=== PATIENT | female | born 1940 | race Caucasian/White ===

== ENCOUNTER 2023-11-26 19:01 | Emergency (ER) | payer OTHER, SELFPAY ==
[2023-11-26 19:13] VITALS: BP 225/95
[2023-11-26 19:34] LABS: % Basophils 0.3 % (0-2); % Eosinophils 4.2 % (0-6); % Immature Granulocytes 0.2 % (0-0.5); % Lymphocytes 19.1 % (20.5-51.1); % Monocytes 7.5 % (1.7-9.3); % Neutrophils 68.7 % (42.2-75.2); Absolute Eosinophils 0.3 10^3/uL (0-0.7); Absolute Lymphocytes 1.2 10^3/uL (1.2-3.4); Absolute Monocytes 0.5 10^3/uL (0.1-0.6); Absolute Neutrophils 4.4 10^3/uL (1.4-6.5); Hematocrit 36.1 % (37.0-47.0); Hemoglobin 12.4 g/dL (12.0-16.0); Mean Corp Hgb Conc. 34.3 g/dL (33.0-37.0); Mean Corpuscular Hgb 30.8 pg (27.0-31.0); Mean Corpuscular Volume 89.6 fL (81.0-99.0); Mean Platelet Volume 9.4 fL (7.4-10.4); Nucleated Red Blood Cells % 0 %; Platelet Count 235 10^3/uL (130-400); Red Blood Cell Count 4.03 10^6/uL (4.20-5.40); Red Cell Dist. Width 12.3 % (11.5-14.5); White Blood Cell Count 6.4 10^3/uL (4.8-10.8)
[2023-11-26 19:49] VITALS: BMI 25.8
[2023-11-26 19:49] LABS: ALT (SGPT) 18 U/L (0-35); AST (SGOT) 21 U/L (14-36); Albumin 4.4 g/dl (3.5-5.0); Alkaline Phosphatase 76 U/L (38-126); Blood Urea Nitrogen 13 mg/dl (7-17); Calcium 9.6 mg/dl (8.4-10.2); Carbon Dioxide 28 mmol/L (22-30); Chloride 102 mmol/L (98-107); Glucose 127 mg/dl (70-99); Potassium 3.5 mmol/L (3.5-5.1); Sodium 139 mmol/L (135-145); Total Bilirubin 1.2 mg/dl (0.2-1.3); Total Protein 6.9 g/dl (6.3-8.2); eGFR > 60.00
[2023-11-26 19:52] VITALS: BP 188/69
--- NOTE | 2023-11-26 19:55 | ED.GENMED ---
History of Present Illness
General
Chief Complaint: Blood Pressure Problem
Source: patient and family
Exam Limitations: none
Time Seen by Provider: 11/26/23 19:38
Nursing documentation reviewed up to this point in time: agreed with
Travel History
Have you had any contact with someone who has COVID-19?: No
Do you have any symptoms of coronavirus? Fever > 100 degrees, chills, cough, shortness of breath, sore throat, loss of taste or smell, muscle aches, or headache?: No
History of Present Illness
History of Present Illness:
83-year-old female history of hypertension admits to noncompliance with her meds presents for evaluation of high blood pressure has not been sleeping well, admits to some anxiety 10-year anniversary of her spouse's is coming up, took her blood
pressure past couple days has been elevated she called her son who brought her to the ER states that to the triage nurse she had pain in her arm to me she states she had pain in her neck tells me it has been a long for some time perhaps as long as a
year no shortness of breath or diaphoresis no fever or chills, called her pump tester today for refill for her meds was unable to pick it up she is unsure of the name of the med,
Past History
Past History
ED Past Medical History: HTN; Negative CAD
ED Past Surgical History: Negative Cardiac
Social History
Tobacco: Non-smoker
Alcohol: None
Drug: None
Personal:
Living: alone
Employment: Employed
Family History
Family History: CAD (Son and spouse)
Review of Systems
Review of Systems
All Other Systems: Not applicable
Constitutional: Denies fever or fatigue
EENT: Reports no symptoms
Respiratory: Reports no symptoms
Cardiac: Denies chest pain or diaphoresis
ABD/GI: Reports no symptoms
: Reports no symptoms
Musculoskeletal: Reports neck pain
Skin: Reports no symptoms
Neurological: Reports no symptoms
Endocrine: Reports no symptoms
Phy Exam
Physical Exam
Physical Exam:
Physical Exam
General: no apparent distress, not acutely ill
Neck: No jaundice
Heart: No murmur regular
Lungs: no acute respiratory distress. clear bilaterally
Abdomen: Nontender
Neuro: alert and oriented. no focal neurological deficits
Skin: no rash
Psychiatric: well kept. interactive and cooperative
Extremities: no edema. no calf tenderness
Scores
Heart Score for Chest Pain Patients
STEMI patient?: No
History: Slightly or Non-Suspicious
ECG: Normal
Age: >/= 65 years
Risk Factors: 1 or 2 Risk Factors
Troponin: </= Normal Limit
Heart Score for Chest Pain Patients: 3
Heart Score Risk: 2.5% MACE over next 6 weeks
Course
Orders/Labs/Results
Orders:
Orders
11/26/23 19:17
Electrocardiogram (*1) Urgent
Reason for Study: Other
Other Reason for Exam: Respiratory Distress
Cardiac Monitoring- Treatment ONCE
EKG- Treatment ONCE
IV Insert/Care/Rem.- Treatment PRN
CR Chest - 2 Views Urgent
Comment:
Reason For Exam: respiratory distress
O2 Therapy [RESP] Urgent
Titrate/Wean O2 to maintain O2 sat greater than (%): 93
Special Instructions: TO MAINTAIN CONTINUOUS O2 SATS >/= 93%
Pulse Ox/cont/shift [RESP] Urgent
Quantity: 1
Special Instructions: continuous pulse ox
11/26/23 19:29
Complete Blood Count/With Diff Urgent
Comprehensive Metabolic Panel Urgent
Troponin I Urgent
11/26/23 19:47
Aspirin 325 mg PO NOW STA
HydrALAZINE [Apresoline] 5 mg IV NOW STA
11/26/23 19:48
Valsartan [Diovan] 80 mg PO NOW STA
Abnormal Lab Results
11/26/23
19:29
RBC 4.03 L 10^6/uL
(4.20-5.40)
Hct 36.1 L %
(37.0-47.0)
Lymphocytes % 19.1 L %
(20.5-51.1)
Creatinine 0.5 L mg/dL
(0.6-1.0)
Glucose 127 H mg/dl
(70-99)
11/26/23 19:29
11/26/23 19:29
Vital Signs
Initial and Last Documented VS:
Initial Vital Signs
Temp Pulse Resp BP Pulse Ox
98.5 F 85 20 225/95 97
11/26/23 19:13 11/26/23 19:13 11/26/23 19:13 11/26/23 19:13 11/26/23 19:13
Last Documented Vital Signs
Temp Pulse Resp BP Pulse Ox
98.5 F 74 17 188/67 96
11/26/23 19:13 11/26/23 20:15 11/26/23 20:15 11/26/23 20:56 11/26/23 20:56
MDM/Problems Addressed
Differential Diagnosis Includes:
Hypertension muscle strain, anxiety, doubt ACS,
MDM/Problems Addressed:
High blood pressure neck pain
Chronic conditions affecting care:
High blood pressure noncompliant
Acute Exacerbation and/or Progression of Chronic Illness:
High blood pressure
*Radiology
Radiology exam reviewed: preliminary read by ED provider
*Pulse Oximetry
Patient hypoxic: no
*EKG
Interpreted by ED Provider?: Yes
Interpretation: normal
Comparison EKG: no comparison EKG present
Heart Rate: 78
Rate: normal
Ischemia: no ischemia
*Bell Clerk Interpretation
Rate: normal
Interpretation: normal
Heart Rate: 78
Rhythm: sinus
*Critical Care Note
Total Time (30-74mins, 75-104mins- exclusive of procedures): Not Applicable
Update Note
Update Note:
Update patient feeling better blood pressure reasonable she has meds at the pharmacy to take workup negative
ED Attending Note
-
Portions of this chart may have been created with voice recognition software.� Occasional wrong word or��sound alike� substitutions may have occurred due to the inherent limitations of voice recognition software.
Discharge Plan
Departure
Patient Disposition: Home (Routine Discharge)
Date of Disposition: 11/26/23
Time of Disposition: 21:18
Patient with high blood pressure during this ER visit?: Yes
Condition: Good
Discharge Problem:
HBP (high blood pressure)
Instructions: High Blood Pressure (DC), Chest Pain DCA Follow Up
Prescriptions:
No Action
aspirin 81 MG tablet,delayed release (DR/EC)
81 mg PO DAILY
Diovan
1 tab PO DAILY
atorvastatin 40 mg Tablet
40 mg PO DAILY
Referrals:
Bryan Alcantar, DO [Non-Admitting Privileges] - Next open appointment
Activity Restrictions/Additional Instructions:
Take your medication as prescribed by your physicians, return to the ER for worsening symptoms follow-up with your family doctor and/or pump tester
Interventions
Interventions:
*Risk Screen - Suicide Last Done: 11/26/23 19:13
*General Assessment Last Done: 11/26/23 19:13
*Neglect/Abuse Screening Last Done: 11/26/23 19:13
ED- Fall Risk Assessment Last Done: 11/26/23 19:13
*ED COVID-19 Vaccine History Last Done: 11/26/23 19:13
ED- Cardiac Assessment Last Done: 11/26/23 19:52
ED- Neurological Assessment Last Done: 11/26/23 19:52
ED- Pulmonary Assessment Last Done: 11/26/23 19:52
Discharge Date and Time
Print Language: SOUTH AFR[place]
[2023-11-26] MEDS: DIOVAN 80 MG PO (19:58)
[2023-11-26] MEDS: ASPIRIN 325 MG PO (19:58)
[2023-11-26 19:59] LABS: Troponin I < 0.012 ng/ml
[2023-11-26 20:56] VITALS: BP 188/67
== END 2023-11-26 21:31 | disposition home or self-care (01) ==
LOC: EMR 19:01
PROVIDERS: EMERGENCY PHYSICIAN Emergency Medicine
DX: I10 Essential (primary) hypertension (principal); Z82.49 Family history of ischemic heart disease and other diseases of the circulatory system; Z91.199 Patient's noncompliance with other medical treatment and regimen due to unspecified reason
CPT/HCPCS: 99283; 96374; 71046; 80053; 84484; 85025; 93005

== ENCOUNTER → 2024-01-29 07:34 | Outpatient (REF) | payer OTHER, SELFPAY | LOC: MRI 3T 07:34 | PROVIDERS: ATTENDING PHYSICIAN Internal Medicine; REFERRING PHYSICIAN Specialist | DX: R41.3 Other amnesia (principal) | CPT/HCPCS: 70551 ==

== ENCOUNTER → 2024-01-31 13:02 | Outpatient (REF) | payer OTHER, SELFPAY | LOC: RAD 13:02 | PROVIDERS: ATTENDING PHYSICIAN Registered Nurse; FAMILY PHYSICIAN Internal Medicine | DX: I73.9 Peripheral vascular disease, unspecified (principal) | CPT/HCPCS: 93922; 93925 ==

== ENCOUNTER → 2024-02-14 09:03 | Outpatient (REF) | payer OTHER, SELFPAY | LOC: RAD 09:03 | PROVIDERS: ATTENDING PHYSICIAN Surgery Vascular Surgery; FAMILY PHYSICIAN Internal Medicine | DX: Z86.73 Personal history of transient ischemic attack (TIA), and cerebral infarction without residual deficits (principal) | CPT/HCPCS: 93880 ==

== ENCOUNTER 2024-03-03 09:27 | Day surgery (SDC) | payer OTHER, SELFPAY ==
[2024-03-03] VITALS (28 sets, daily range): BP systolic 128–198; BP diastolic 49–102; BMI 24.3; BMI 24.0
[2024-03-03 09:58] LABS: Hematocrit 33.5 % (37.0-47.0); Hemoglobin 12.1 g/dL (12.0-16.0); Mean Corp Hgb Conc. 36.1 g/dL (33.0-37.0); Mean Corpuscular Hgb 31.9 pg (27.0-31.0); Mean Corpuscular Volume 88.4 fL (81.0-99.0); Mean Platelet Volume 9.4 fL (7.4-10.4); Platelet Count 267 10^3/uL (130-400); Red Blood Cell Count 3.79 10^6/uL (4.20-5.40); Red Cell Dist. Width 12.3 % (11.5-14.5); White Blood Cell Count 5.7 10^3/uL (4.8-10.8)
[2024-03-03 10:07] LABS: INR 1.07; PT 13.7 Sec (11.4-14.6)
[2024-03-03 10:08] LABS: APTT 29.5 Sec (23.4-35.0)
[2024-03-03 10:11] LABS: Blood Urea Nitrogen 13 mg/dl (7-17); Calcium 9.5 mg/dl (8.4-10.2); Carbon Dioxide 27 mmol/L (22-30); Chloride 104 mmol/L (98-107); Glucose 112 mg/dl (70-99); Potassium 3.9 mmol/L (3.5-5.1); Sodium 141 mmol/L (135-145); eGFR > 60.00
[2024-03-03] MEDS: NSS 500 IV (10:46)
--- NOTE | 2024-03-03 11:14 | W.SUR.PREOP ---
Pre-Operative Surgical Note
-
I have examined this patient prior to the performance of the scheduled procedure.
The patient's condition is unchanged from the time of the current History and
Physical and the patient is able to undergo the scheduled procedure.
[2024-03-03] MEDS: APRESOLINE 5 MG IV ×2 (12:55→18:16)
--- NOTE | 2024-03-03 13:18 | W.SUR.POST ---
Surgical Immediate Post Op
Note
Pre Op Diagnosis: PAD
Post Op Diagnosis: PAD
Procedure Performed: RLE angiogram, right SFA WOOD MILLING MACHINE HAND/stent x 3
Primary Surgeon: Shelly
Anesthesia: local and sedation
Estimated Blood Loss: <2cc
Fluids: see anesthesia flow sheet
Drains/Shunts: none
Specimens/Cultures: none
Doppler/Duplex/Angio (Y/N): Y
Complications: none
Operative Findings: successful stent placement
[2024-03-03] MEDS: PLAVIX 300 MG PO (13:19)
[2024-03-03] MEDS: NSS 1000 IV ×2 (14:07→20:21)
--- NOTE | 2024-03-03 16:30 | PTCARENOTE ---
BP 173/68, Giana DOMÍNGUEZ informed, will place an order for now dose of hydrochlorothiazide, see mar
--- NOTE | 2024-03-03 16:41 | OR.RPT ---
Operative Report
Operative Report
Date of Operation: 03/03/2024
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
Procedure:
1.) Balloon angioplasty and stenting of right superficial femoral artery and above-knee popliteal artery (overlapping Zilver PTX stents-6 mm x 140 mm distal, 6 mm x 140 mm mid, 6 mm x 80 mm proximal)
2.) Diagnostic aortobiiliac arteriogram
3.) Diagnostic right lower extremity arterial
4.) Ultrasound-guided percutaneous access to the left common femoral artery
Surgeon: Richard Bravo III, MD
Anesthesia: Sedation with local
Fluoroscopy:
28.4 min
121 mGy
17.74 Gy.cm2
Complications: None
Estimated Blood Loss: Minimal
History and Indications for Procedure: 84-year-old female with a lesion on the plantar surface of her right foot. It was anticipated that she would need surgical intervention for this. Preoperative vascular lab studies demonstrated peripheral
arterial disease with a right superficial femoral artery occlusion. I recommended an arteriogram with possible endovascular intervention.
Procedure in Detail: Paloma Meneses was correctly identified and placed supine on the operating table. After adequate induction of anesthesia the bilateral groins were prepped and draped in the usual sterile fashion. A timeout was performed with the
nursing and anesthesia staff confirming the patient's identity as well as the nature and laterality of the procedure.
The left common femoral artery was identified under ultrasound guidance. The artery was patent. The superior and inferior aspects of the femoral head were identified with radiographic guidance and marked at the skin level. The proposed puncture site
was infiltrated with local anesthesia. Under ultrasound guidance we accessed the left common femoral artery with a micropuncture needle and upsized to a 5 Fr sheath over a Bentson wire. The wire and a [employer] hook flush catheter were advanced into
the distal abdominal aorta and a diagnostic aorto-biiliac arteriogram was performed:
AORTO-ILIAC ARTERIOGRAM:
Aorta: Patent with no stenosis identified
Right common iliac artery: Patent with no stenosis identified
Right external iliac artery: Patent with no stenosis identified
Left common iliac artery: Patent with no stenosis identified
Left external iliac artery: Patent with no stenosis identified
Under roadmap guidance using a Glidewire and the [employer] hook catheter we selected the right common iliac artery and then the external iliac artery. A catheter was tracked up and over the aortic bifurcation and placed in the distal external iliac
artery. A diagnostic right lower extremity arteriogram was then performed which demonstrated the following:
RIGHT LOWER EXTREMITY:
Common femoral artery: Patent with no stenosis identified
Profunda femoral artery: Patent with no stenosis identified
Superficial femoral artery: Patent for short segment proximally with high-grade stenosis. Occluded thereafter.
Popliteal artery: Reconstituted above the knee. Moderate to high-grade stenoses identified above the knee. Behind the knee and below the knee segments patent with no stenosis identified
Anterior tibial artery: Patent
Tibioperoneal trunk: Patent
Peroneal artery: Patent
Posterior tibial artery: Patent proximally but occludes distally near the ankle
ENDOVASCULAR INTERVENTION: Systemic heparin was administered. Exchanged out for a 6 Fr 45 cm sheath over a Lazarus Effect wire. Selected the superficial femoral artery under roadmap guidance with Quickcross catheter and glidewire. The SFA occlusion was
crossed with a Quickcross and Glidewire. The wire and catheter were advanced into the popliteal artery and subtraction angio confirmed proper position in the true lumen. Exchanged out for a 0.014 wire. The occlusion was predilated with a 4 mm x 150
mm angioplasty balloon. I then brought into position overlapping Zilver PTX stents as follows: A 6 mm x 140 mm Zilver PTX was positioned with its distal extent in the above-knee popliteal artery and deployed. An additional 6 mm x 140 mm Zilver PTX
was then overlapped slightly with the proximal end of the stent and deployed. A 6 mm x 80 mm Zilver PTX was then positioned proximally and deployed, extending back to the SFA origin. The stents were then profiled with a 5 mm angioplasty balloon.
COMPLETION ARTERIOGRAM: Widely patent superficial femoral artery and popliteal artery with brisk flow and no significant residual stenosis identified. Significantly improved tibial artery flow via the anterior tibial artery and peroneal arteries.
The posterior tibial artery was patent in the proximal and mid segments but occluded distally near the ankle.
Satisfied with this result we concluded the procedure. The sheath tip was pulled back into the left external iliac artery. Protamine was administered.
The patient tolerated the procedure well and was taken to the recovery area in stable condition.
Signed:
Richard Bravo III, MD
[facility]
[phone] (cell)
[2024-03-03] MEDS: ORETIC 25 MG PO (16:58)
--- NOTE | 2024-03-03 19:19 | PTCARENOTE ---
1850: Pt with sudden vomiting of a large amount of undigested food, denies nausea, felt better after vomiting, pt cleaned up and linens changed, ambulated to bathroom, gait steady, able to void small amount.
1917: Back in bed, latest vital signs HR 84, RR 21, BP 171/57, O2 sat 98% on room air, left groin site WNL, pt denies complaints, Dr Shelly redding texted with pt update of all events described above
--- NOTE | 2024-03-03 19:30 | PTCARENOTE ---
Spoke with Dr Bravo, he would like pt to be admitted and observed over night
--- NOTE | 2024-03-03 19:37 | PTCARENOTE ---
Pt with belching and nausea, Dr Shelly redding texted
--- NOTE | 2024-03-03 19:45 | PTCARENOTE ---
EKG done and sent to Dr Bravo via tiger text
[2024-03-03] MEDS: HEPARIN 5000 UNITS SC (20:22)
[2024-03-03] MEDS: ZOFRAN 4 MG IV (20:27)
--- NOTE | 2024-03-03 21:00 | PTCARENOTE ---
PT IS AAOX3. NO C/O PAIN. VASCULAR SITE C/D/I, WEAK PP. PT ORIENTED TO ROOM W/ CALL AUGUSTIN IN REACH.
[2024-03-03] MEDS: LIPITOR 20 MG PO (21:18)
[2024-03-04 03:00] VITALS: BP 169/59
[2024-03-04 03:15] VITALS: BP 158/72
--- NOTE | 2024-03-04 07:17 | W.PN.VS ---
Today's Communication / Plan
-
DC
Assessment/Plan
-
POD 1 Balloon angioplasty and stenting of right superficial femoral artery and above-knee popliteal artery (overlapping Zilver PTX stents-6 mm x 140 mm distal, 6 mm x 140 mm mid, 6 mm x 80 mm proximal)
Plan:
-Patient voided 3 times overnight without intervention , okay for discharge from vascular standpoint
Subjective Data
-
Date of Service: March 04, 2024
Patient seen at bedside this a.m. resting comfortably, no events overnight. Patient voided 3 times on her own send straight cath yesterday afternoon
Objective Data
-
Vital Signs
Temp Pulse Resp BP Pulse Ox
98.2 F 83 19 158/72 95
03/04/24 03:00 03/04/24 03:00 03/04/24 03:00 03/04/24 03:15 03/04/24 03:00
Intake and Output
03/03/24 03/04/24 03/05/24
06:59 06:59 06:59
Intake Total 2120 / 2120
Output Total 600 / 600
Balance 1520 / 1520
Intake:
Oral fluids 960 / 960
IV fluids (Total) 1160 / 1160
ns 100 / 100
Output:
Straight cath output 600 / 600
Other:
Number of approximated MODERATE 3
amounts of urine
Calcium 9.5 mg/dl (8.4-10.2) 03/03/24 09:42
Physical Exam
-
AAOx3
No tachypnea
No tachycardia
Abdomen soft
Groin site clean, dry, intact. Soft, no hematoma or drainage
Bilateral feet warm, palpable DP pulse
[2024-03-04 08:00] VITALS: BP 179/74
[2024-03-04] MEDS: ASPIR LOW (ENTERIC COATED) 81 MG PO (08:01)
[2024-03-04] MEDS: PLAVIX 75 MG PO (08:01)
[2024-03-04] MEDS: COZAAR 25 MG PO (08:01)
[2024-03-04] MEDS: ORETIC 25 MG PO (08:01)
[2024-03-04] MEDS: HEPARIN SC (08:03)
--- NOTE | 2024-03-04 09:09 | CM ---
Patient admitted for outpatient procedure. manager of program reviewed patient's chart and patient lives with spouse in a multilevel home patient is independent with adl's and ambulation, no dme, patient is for discharge to home today no needs.
PCP: Dr. Alcantar
Pharmacy [facility]
Plan; Home today no needs.
[2024-03-04 09:14] LABS: Hematocrit 31.6 % (37.0-47.0); Hemoglobin 11.2 g/dL (12.0-16.0); Mean Corp Hgb Conc. 35.4 g/dL (33.0-37.0); Mean Corpuscular Hgb 31.2 pg (27.0-31.0); Mean Platelet Volume 9.8 fL (7.4-10.4); Platelet Count 243 10^3/uL (130-400); Red Blood Cell Count 3.59 10^6/uL (4.20-5.40); Red Cell Dist. Width 12.4 % (11.5-14.5); White Blood Cell Count 10.3 10^3/uL (4.8-10.8)
[2024-03-04 10:01] LABS: Blood Urea Nitrogen 11 mg/dl (7-17); Calcium 8.7 mg/dl (8.4-10.2); Carbon Dioxide 23 mmol/L (22-30); Chloride 105 mmol/L (98-107); Estimated Creatinine Clearance 54 ml/min; Glucose 114 mg/dl (70-99); Potassium 3.3 mmol/L (3.5-5.1); Sodium 139 mmol/L (135-145); eGFR > 60.00
== END 2024-03-04 08:43 | disposition home or self-care (01) ==
LOC: CATH 09:27
PROVIDERS: Nurse Practitioner; ATTENDING PHYSICIAN Surgery Vascular Surgery; FAMILY PHYSICIAN Internal Medicine; OTHER PHYSICIAN Internal Medicine Cardiovascular Disease
DX: I73.9 Peripheral vascular disease, unspecified (principal); D23.71 Other benign neoplasm of skin of right lower limb, including hip; Z86.73 Personal history of transient ischemic attack (TIA), and cerebral infarction without residual deficits; Z79.82 Long term (current) use of aspirin
CPT/HCPCS: 37226; C1874; 75625; 75716; 76937; 80048; 85027; 85610; 85730; 93005; C1725; C1769; C1894; Q9967

== ENCOUNTER → 2024-04-12 15:04 | Outpatient (REF) | payer OTHER, SELFPAY | LOC: RAD 15:04 | PROVIDERS: ATTENDING PHYSICIAN Surgery Vascular Surgery; FAMILY PHYSICIAN Internal Medicine | DX: I77.79 Dissection of other specified artery (principal) | CPT/HCPCS: 93922; 93925 ==

== ENCOUNTER 2024-09-29 06:48 | Outpatient (RCR) | payer SELFPAY | END 2024-09-29 23:59 | disposition home or self-care (01) | LOC: ROT 06:48 | PROVIDERS: ATTENDING PHYSICIAN Specialist; FAMILY PHYSICIAN Internal Medicine | DX: Z02.4 Encounter for examination for driving license (principal) ==

== ENCOUNTER → 2024-10-24 08:04 | Outpatient (REF) | payer OTHER, SELFPAY | LOC: DHVS 08:04 | PROVIDERS: ATTENDING PHYSICIAN Registered Nurse; FAMILY PHYSICIAN Internal Medicine | DX: I77.9 Disorder of arteries and arterioles, unspecified (principal) | CPT/HCPCS: 93922; 93925 ==

== ENCOUNTER → 2024-11-06 08:24 | Outpatient (REF) | payer OTHER, SELFPAY | LOC: HWRCS 08:24 | PROVIDERS: ATTENDING PHYSICIAN Internal Medicine Cardiovascular Disease; FAMILY PHYSICIAN Internal Medicine | DX: I35.0 Nonrheumatic aortic (valve) stenosis (principal) | CPT/HCPCS: 93306 ==

== ENCOUNTER → 2025-01-23 08:38 | Outpatient (REF) | payer OTHER, SELFPAY | LOC: MRI 08:38 | PROVIDERS: ATTENDING PHYSICIAN Specialist; FAMILY PHYSICIAN Internal Medicine | DX: D32.0 Benign neoplasm of cerebral meninges (principal) | CPT/HCPCS: 70553; A9575 ==